=== PATIENT | female | born 1940 | race Caucasian/White ===

== ENCOUNTER 2018-10-04 09:24 | Inpatient (IN) | payer MEDICARE ==
--- NOTE | 2018-10-04 09:44 | ED Physician Chart ---
ED Chief Complaint/HPI - Patient Information Date Seen:: 10/04/18 Time Seen:: 09:30 Chief Complaint:: sob History of Present Illness:: recent discharge from in patient dx pna seen fu 4 days urgent care told to go er sob Allergies:: Allergies Allergy/AdvReac Type Severity Reaction Status Date / Time No Known Allergies Allergy Verified 10/04/18 09:32 Vitals:: Vital Signs - 8 hr 10/04/18 09:33 Temp 98.6 F HR 130 RR 20 BP 169/61 O2 Sat % 86 Historian:: Patient, EMS Review:: Nurse's Note Reviewed ED Review of Systems - Review of Systems Skin: No skin lesions Head: No headache Eyes: No loss of vision ENT: No earache Neck: No neck pain Cardio Vascular: No chest pain Pulmonary: SOB GI: No nausea G/U: No hematuria Marketing Technologist: No vaginal discharge Musculoskeletal: No back pain Endocrine: No polyuria Psychiatric: No homicidal ideation, Auditory hallucination Hematopoietic: No bruising Allergic/Immuno: No urticaria Neurological: No syncope ED Past Medical History - Past Medical History Past Medical History: Asthma/COPD Family History: None Social History: Smoker Surgical History: None Psychiatricy History: None Medication: Reviewed Family Medical History - Family Member Mother History Unknown: Yes ED Physical Exam - Physical Examination General/Constitutional: Awake, Alert Head: Atraumatic Eyes: Lids, conjuctiva normal Skin: Nl inspection ENMT: External ears, nose nl Neck: Nontender, No stridor Other Respiratory comments:: moderate tachypnea coughing adequate movement air Cardio Vascular: RRR, No murmur, gallop, rubs, NL S1 S2 GI: No tenderness/rebounding/guarding : No CVA tenderness Extremities: No tenderness or effusion Neuro/Psych: Alert/oriented Misc: Normal back ED Labs/Radiology/EKG Results - Lab Results Results: 24415 wbc r lobe infiltrate with pleural effusion - Radiology Results Results: pna ED Assessment - Assessment General Assessment: severe r pna ED Septic Shock - . Is Septic Shock (SBP<90, OR Lactate>4 mmol\L) present?: No - <6hrs of presentation: Vital Signs: Vital Signs - 8 hr 10/04/18 09:33 Temp 98.6 F HR 130 RR 20 BP 169/61 O2 Sat % 86 ED Reassessment (Disposition) - Reassessment Reassessment Condition:: Improved - Patient Disposition Discharge/Transfer:: Acute Care w/in this hosp (slight improvement o2 sat) Admitted to:: Telemetry Admitting Medical Physician:: yi jonas admit Condition at Disposition:: Stable (antibiotic given)
[2018-10-04 09:50] LABS: HEMATOCRIT 44.8 % (41.0-60); HEMOGLOBIN 14.9 gm/dL (12-16); MEAN CELL VOLUME 92.7 fl (81-100); MEAN CORPUSCULAR HEMOGLOBIN 30.7 pg (27.0-31.0); MEAN CORPUSCULAR HGB CONC 33.2 pg (28.0-36.0); PLATELET COUNT 330 Th/cmm (150-400); RED BLOOD COUNT 4.84 Mil/cmm (3.80-5.20)
[2018-10-04 09:57] LABS: WHITE BLOOD COUNT 15.3 Th/cmm (4.8-10.8)
[2018-10-04 10:07] LABS: LYMPHOCYTE 6 % (20-50); MONOCYTE 7 % (2-10); NEUTROPHILS 87 % (40-80)
[2018-10-04 10:08] LABS: PLATELET ESTIMATE ADEQUATE (NORMAL)
--- NOTE | 2018-10-04 10:25 | Diagnostic Imaging Report ---
Portable chest x-ray HISTORY: Shortness of breath The heart appears enlarged. Atherosclerotic calcination seen in the aorta. There is evidence of a small to moderate right pleural effusion. Severe infiltrate noted in the right mid and lower lung regions. Questionable infiltrate left lower lobe. IMPRESSION: 1. Severe infiltrate within the right mid and lower lung and possibly the left lower lobe regions. Small to moderate right pleural effusion. Pneumonia cannot be excluded. Clinical correlation is needed.
[2018-10-04 10:46] LABS: ANION GAP 13.3 (7.0-16.0); BUN - UREA NITROGEN 10 mg/dL (7-25); CALCIUM SERUM 9.7 mg/dL (8.6-10.3); CARBON DIOXIDE 27.5 mEq/L (21.0-31.0); CHLORIDE 99 mEq/L (98-107); CREATININE - SERUM 0.7 mg/dL (0.6-1.2); GLUCOSE 139 mg/dL (70-105); POTASSIUM SERUM 3.8 mEq/L (3.5-5.1); SODIUM SERUM 136 mEq/L (136-145)
[2018-10-04] MEDS ORDERED: Vancomycin HCl 1.5 GM in Sodium Chloride 0.9% 500 ML IV ONE (12:00)
[2018-10-04] MEDS: Acetaminophen 500 MG TAB PO PRN ×2 (12:50→22:23)
[2018-10-04] MEDS: Sodium Chloride 0.9% 1,000 ML IV SCH (12:51)
[2018-10-04 14:03] VITALS: BP 123/51
[2018-10-04] MEDS ORDERED: VTE Chemical Prophylaxis Screen/Admission MC PRN (17:00)
[2018-10-04] MEDS: Albuterol Nebulizer 2.5mg/3mL HHN PRN (19:47)
[2018-10-05] MEDS: Sodium Chloride 0.9% 1,000 ML IV SCH (02:13)
[2018-10-05 06:43] LABS: HEMOGLOBIN 12.8 gm/dL (12-16); MEAN CORPUSCULAR HEMOGLOBIN 30.8 pg (27.0-31.0); MEAN CORPUSCULAR HGB CONC 33.5 pg (28.0-36.0); MEAN PLATELET VOLUME 8.1 fl; PLATELET COUNT 280 Th/cmm (150-400); RED BLOOD COUNT 4.16 Mil/cmm (3.80-5.20); RED CELL DISTRIBUTION WIDTH 13.2 % (11.5-20.0)
[2018-10-05 07:04] LABS: ALBUMIN 2.9 gm/dL (3.7-5.3); ALKALINE PHOSPHATASE 48 U/L (34-104); ANION GAP 9.6 (7.0-16.0); BILIRUBIN,TOTAL 0.3 mg/dL (0.3-1.0); BUN - UREA NITROGEN 8 mg/dL (7-25); CALCIUM SERUM 8.7 mg/dL (8.6-10.3); CARBON DIOXIDE 29.4 mEq/L (21.0-31.0); CHLORIDE 103 mEq/L (98-107); CREATININE - SERUM 0.6 mg/dL (0.6-1.2); GLUCOSE 88 mg/dL (70-105); SGOT 11 U/L (13-39); SGPT/ALT 10 U/L (7-52); SODIUM SERUM 138 mEq/L (136-145); TOTAL PROTEIN,SERUM 5.7 gm/dL (6.0-8.3)
[2018-10-05 07:26] LABS: WHITE BLOOD COUNT 7.4 Th/cmm (4.8-10.8)
[2018-10-05 07:36] LABS: BAND NEUTROPHILE 1 % (0-10); BASOPHIL 0 % (0-3); EOSINOPHIL 3 % (0-5); HEMATOCRIT 38.3 % (41.0-60); LYMPHOCYTE 6 % (20-50); MONOCYTE 6 % (2-10); NEUTROPHILS 84 % (40-80)
[2018-10-05] MEDS: Albuterol Nebulizer 2.5mg/3mL HHN PRN (07:46)
[2018-10-05] MEDS: Acetaminophen 500 MG TAB PO PRN (08:41)
[2018-10-05] MEDS: Lactated Ringer 1,000 ML IV SCH (10:09)
[2018-10-05 10:38] LABS: URINE SOURCE CLEAN C
[2018-10-05 10:52] LABS: URINE BILIRUBIN NEGATIVE (NEGATIVE); URINE BLOOD TRACE (NEGATIVE); URINE GLUCOSE (UA) NEGATIVE (NEGATIVE); URINE KETONE TRACE mg/dL (NEGATIVE); URINE LEUKOCYTE ESTERASE NEGATIVE (NEGATIVE); URINE MICROSCOPIC INDICATED? YES; URINE NITRATE NEGATIVE (NEGATIVE); URINE PH 5.5 (4.6 - 8.0); URINE PROTEIN NEGATIVE (NEGATIVE); URINE UROBILINOGEN 0.2 E.U./dL (0.2 - 1.0)
[2018-10-05 11:00] LABS: URINE CLARITY SLIGHTLY HAZY (CLEAR); URINE COLOR YELLOW; URINE RBC 0-2 /hpf (0-5); URINE WBC 0-2 /hpf (0-5)
[2018-10-05 11:01] LABS: URINE BACTERIA NONE SEEN /hpf (NONE SEEN); URINE EPITHELIAL CELLS MANY /lpf (FEW); URINE YEAST FEW /hpf (NONE SEEN)
[2018-10-05 11:11] LABS: pH 7.37 (7.35-7.45)
[2018-10-05 11:12] LABS: ALLEN TEST Yes
[2018-10-05] MEDS: Albuterol/Ipratropium Neb 3 ML AERS HHN SCH ×3 (11:26→18:59)
[2018-10-05] MEDS: Acetylcysteine 10% 10 ML VIAL HHN SCH ×2 (11:26→19:00)
--- NOTE | 2018-10-05 14:08 | History & Physical ---
ADMIT DATE: 10/04/2018 CHIEF COMPLAINT: Shortness of breath. HISTORY OF PRESENT ILLNESS: The patient is a 77-year-old female who was apparently admitted to [facility] on 09/24/2018 and was discharged on 10/02/2018 for similar symptoms, namely shortness of breath, chest congestion and phlegm production. The patient apparently was diagnosed with pneumonia, but by the day that she discharged, she felt somewhat better. Patient was told then that she had COPD and possibly lung cancer, but she refused further work-up while in the hospital. She again started complaining of shortness of breath a few days ago and actually went to an urgent care where she was told to come into the ER. Pertinent findings on admission include white count of 15.3 and a chest x-ray showing severe infiltrate within the right mid and right lower lobe, possibly the left lower lobe regions. Small to moderate right pleural effusions are also noted. The patient also has been noted to have fevers and her O2 sats have also been noted to be on the low side, currently requiring Venturi mask at 50% FiO2 with O2 sats above 95%. On further questioning, she does admit to chronic smoking and has about a [id number] history. She does admit currently to fever, chills and thick phlegm production and yellowish color. PAST MEDICAL HISTORY: COPD, although she says that she has not formally been told that she has it. Previous essential hypertension (not on meds). PAST SURGICAL HISTORY: None reported. FAMILY HISTORY: Noncontributory to this admission. SOCIAL HISTORY: A pack a day for roughly about 40 years. Denies any alcohol. ALLERGIES: NKDA. OUTPATIENT MEDICATIONS: Zithromax 250 every day, Advair 250/50 one puff b.i.d., Proventil HFA 2 puffs q. 4 hours as needed. REVIEW OF SYSTEMS: CONSTITUTIONAL: Fever, chills for the last couple of days. No recent weight loss. CARDIOVASCULAR: No chest pain or palpitations. PULMONARY: Please Refer to the HPI. GASTROINTESTINAL: No bowel habit changes. GENITOURINARY: No bladder habit changes. NEUROLOGIC: No changes in vision, no headaches. PHYSICAL EXAMINATION: VITAL SIGNS: Temperature 98.7, pulse 84-98, respirations 18, BP 129/67, satting 95% on 50% Venturi mask. GENERAL: She is a well-developed, well-nourished female and some respiratory distress, speaking in 2-3 words sentences. She appears to be nontoxic. HEAD AND NECK: Normocephalic, atraumatic. Pupils reactive to light. Extraocular movements are intact. Oropharynx moist and clear. CARDIAC: Regular rate and rhythm without any murmurs. LUNGS: Diminished in both bases. There is mild inspiratory wheezing and some rhonchi noted as well, both lung [place]. ABDOMEN: Soft, supple, nontender, nondistended, normoactive bowel sounds. EXTREMITIES: Lower extremities, there is no pedal edema. LABORATORY DATA: White count 15.3, H and H 15/44 with 87% neutrophils, platelet count 330. Chem-7 was essentially within normal limits with glucose of 139. Lactic acid level 1.65. LFTs were within normal limits. BNP 70. DIAGNOSTICS: Please refer to the HPI. IMPRESSION: 1. Respiratory failure/hypoxia. 2. Sepsis, fever. 3. Bilateral pneumonia, with severe RM/RLL pneumonia. 4. R/O lung cancer given current findings and long standing smoking history. 5. Leukocytosis. 6. Likely chronic obstructive pulmonary disease with exacerbation. 7. Nicotine dependence. PLAN: The patient has been admitted to [facility] for further management and care. The patient has been placed on oxygen, currently Venturi mask at 35% to keep sats above 92%. She also has been started on broad-spectrum antibiotics, IV Solu-Medrol as well as inhaled Solu-Medrol and IV fluids. The patient also will be started on acetylcysteine solution and a Pulmonary consult will be asked for further management and care. I will ask for CT scan of chest, follow CXRs, ABGs, and will wean off oxygen as tolerated. Diagnostic/therapeutic bronchoscopy will likely be highly recommended given her current findings and history. JOB# [id number] CYN
[2018-10-05] MEDS ORDERED: Probiotic Screen MC PRN (14:14)
[2018-10-05] MEDS: Budesonide 0.5 Mg/2 mL Ud HHN SCH (18:59)
[2018-10-06] MEDS: Lactated Ringer 1,000 ML IV SCH (02:11)
[2018-10-06 06:40] LABS: HEMATOCRIT 38.4 % (41.0-60); HEMOGLOBIN 12.6 gm/dL (12-16); LYMPHOCYTE ABSOLUTE 0.3 Th/cmm (1.5-3.0); MEAN CELL VOLUME 92.7 fl (81-100); MEAN CORPUSCULAR HEMOGLOBIN 30.4 pg (27.0-31.0); MEAN CORPUSCULAR HGB CONC 32.8 pg (28.0-36.0); MEAN PLATELET VOLUME 7.8 fl; MONOCYTE ABSOLUTE 0.1 Th/cmm (0.3-1.0); NEUTROPHILE ABSOLUTE 3.9 Th/cmm (1.8-8.0); PLATELET COUNT 297 Th/cmm (150-400); RED BLOOD COUNT 4.14 Mil/cmm (3.80-5.20); RED CELL DISTRIBUTION WIDTH 12.9 % (11.5-20.0); WHITE BLOOD COUNT 4.3 Th/cmm (4.8-10.8)
[2018-10-06 07:09] LABS: ANION GAP 11.8 (7.0-16.0); BUN - UREA NITROGEN 9 mg/dL (7-25); CALCIUM SERUM 9.2 mg/dL (8.6-10.3); CARBON DIOXIDE 29.2 mEq/L (21.0-31.0); CHLORIDE 101 mEq/L (98-107); CREATININE - SERUM 0.6 mg/dL (0.6-1.2); GLUCOSE 137 mg/dL (70-105); MAGNESIUM 2.1 mg/dL (1.9-2.7); SODIUM SERUM 138 mEq/L (136-145)
[2018-10-06] MEDS: Acetylcysteine 10% 10 ML VIAL HHN SCH ×2 (07:10→19:00)
[2018-10-06] MEDS: Albuterol/Ipratropium Neb 3 ML AERS HHN SCH ×4 (07:10→19:00)
[2018-10-06] MEDS: Budesonide 0.5 Mg/2 mL Ud HHN SCH ×2 (07:10→19:31)
[2018-10-06 07:26] LABS: BAND NEUTROPHILE 1 % (0-10); LYMPHOCYTE 5 % (20-50); MONOCYTE 3 % (2-10); NEUTROPHILS 91 % (40-80); PLATELET ESTIMATE ADEQUATE (NORMAL)
[2018-10-06] MEDS: Sodium Chloride 0.9% 1,000 ML IV SCH (14:40)
[2018-10-07 05:12] LABS: BASOPHILE ABSOLUTE 0.1 Th/cumm (0-0.2); HEMATOCRIT 36.4 % (41.0-60); HEMOGLOBIN 11.9 gm/dL (12-16); LYMPHOCYTE ABSOLUTE 0.5 Th/cmm (1.5-3.0); MEAN CELL VOLUME 92.3 fl (81-100); MEAN CORPUSCULAR HEMOGLOBIN 30.2 pg (27.0-31.0); MEAN CORPUSCULAR HGB CONC 32.7 pg (28.0-36.0); MEAN PLATELET VOLUME 7.2 fl; MONOCYTE ABSOLUTE 0.2 Th/cmm (0.3-1.0); PLATELET COUNT 286 Th/cmm (150-400); RED BLOOD COUNT 3.95 Mil/cmm (3.80-5.20); RED CELL DISTRIBUTION WIDTH 12.8 % (11.5-20.0); WHITE BLOOD COUNT 9.8 Th/cmm (4.8-10.8)
[2018-10-07 05:49] LABS: BAND NEUTROPHILE 0 % (0-10); LYMPHOCYTE 10 % (20-50); MONOCYTE 5 % (2-10); NEUTROPHILS 85 % (40-80)
[2018-10-07 06:19] LABS: ANION GAP 9.8 (7.0-16.0); BUN - UREA NITROGEN 13 mg/dL (7-25); CALCIUM SERUM 8.9 mg/dL (8.6-10.3); CHLORIDE 104 mEq/L (98-107); CREATININE - SERUM 0.5 mg/dL (0.6-1.2); GLUCOSE 144 mg/dL (70-105); MAGNESIUM 2.2 mg/dL (1.9-2.7); POTASSIUM SERUM 3.8 mEq/L (3.5-5.1); SODIUM SERUM 140 mEq/L (136-145)
[2018-10-07] MEDS: Albuterol/Ipratropium Neb 3 ML AERS HHN SCH ×4 (07:11→19:18)
[2018-10-07] MEDS: Budesonide 0.5 Mg/2 mL Ud HHN SCH ×2 (07:12→19:19)
[2018-10-07] MEDS: Acetylcysteine 10% 10 ML VIAL HHN SCH ×2 (07:12→19:18)
--- NOTE | 2018-10-07 08:33 | Diagnostic Imaging Report ---
Exam: Portable chest x-ray HISTORY: Pneumonia Prior exam: 10/04/2018 Findings: Portable summation of chest at 0 814 reviewed. The study demonstrates extensive peribronchial infiltrate in the right lung with superimposed effusion unchanged upper approximation. The visualized left lung parenchyma is well aerated. Mediastinal structures midline the the aortic arch calcified, bony thorax intact. IMPRESSION: Essentially unchanged appearance of extensive interstitial infiltrate right lung with superimposed right pleural effusion. Follow-up exam is recommended.
[2018-10-07 09:42] LABS: pH 7.44 (7.35-7.45)
[2018-10-07] MEDS: Sodium Chloride 0.9% 1,000 ML IV SCH (17:44)
[2018-10-08 07:20] LABS: HEMATOCRIT 41.3 % (41.0-60); HEMOGLOBIN 13.6 gm/dL (12-16); MEAN CELL VOLUME 92.1 fl (81-100); MEAN CORPUSCULAR HEMOGLOBIN 30.5 pg (27.0-31.0); MEAN CORPUSCULAR HGB CONC 33.1 pg (28.0-36.0); PLATELET COUNT 289 Th/cmm (150-400); RED BLOOD COUNT 4.48 Mil/cmm (3.80-5.20); RED CELL DISTRIBUTION WIDTH 12.4 % (11.5-20.0)
[2018-10-08] MEDS: Albuterol/Ipratropium Neb 3 ML AERS HHN SCH ×4 (07:23→18:59)
[2018-10-08] MEDS: Acetylcysteine 10% 10 ML VIAL HHN SCH ×2 (07:24→18:59)
[2018-10-08 07:43] LABS: ANION GAP 11.9 (7.0-16.0); BUN - UREA NITROGEN 13 mg/dL (7-25); CARBON DIOXIDE 31.8 mEq/L (21.0-31.0); CHLORIDE 101 mEq/L (98-107); GLUCOSE 128 mg/dL (70-105); POTASSIUM SERUM 3.7 mEq/L (3.5-5.1); SODIUM SERUM 141 mEq/L (136-145)
[2018-10-08 09:01] LABS: BAND NEUTROPHILE 4 % (0-10); BASOPHIL 0 % (0-3); EOSINOPHIL 0 % (0-5); LYMPHOCYTE 7 % (20-50); MONOCYTE 2 % (2-10); NEUTROPHILS 87 % (40-80)
[2018-10-08] MEDS: Sodium Chloride 0.9% 1,000 ML IV SCH (12:10)
[2018-10-08 13:35] LABS: CREATININE - SERUM 0.4 mg/dL (0.6-1.2)
[2018-10-08] MEDS: Budesonide 0.5 Mg/2 mL Ud HHN SCH (14:43)
[2018-10-08] MEDS: Lactobacillus Rhamnosus GG 15 Billion CFU CAP.SPRINK PO SCH (17:17)
[2018-10-09] MEDS: Budesonide 0.5 Mg/2 mL Ud HHN SCH ×2 (08:16→19:02)
[2018-10-09] MEDS: Albuterol/Ipratropium Neb 3 ML AERS HHN SCH ×5 (08:21→23:20)
[2018-10-09] MEDS: Acetylcysteine 10% 10 ML VIAL HHN SCH ×2 (08:21→19:02)
[2018-10-09] MEDS: Lactobacillus Rhamnosus GG 15 Billion CFU CAP.SPRINK PO SCH (09:19)
[2018-10-09] MEDS: Sodium Chloride 0.9% 1,000 ML IV SCH (09:31)
[2018-10-10] MEDS: Budesonide 0.5 Mg/2 mL Ud HHN SCH ×2 (07:05→19:30)
[2018-10-10] MEDS: Albuterol/Ipratropium Neb 3 ML AERS HHN SCH ×4 (07:05→19:30)
[2018-10-10] MEDS: Acetylcysteine 10% 10 ML VIAL HHN SCH ×2 (07:05→19:30)
[2018-10-10] MEDS: Lactobacillus Rhamnosus GG 15 Billion CFU CAP.SPRINK PO SCH (08:35)
[2018-10-10] MEDS: Sodium Chloride 0.9% 1,000 ML IV SCH (08:49)
[2018-10-10 11:18] LABS: % EOSINOPHILS 0.2 % (0.0-5.0); % LYMPHOCYTES 8.7 % (20.0-50.0); % MONOCYTES 1.7 % (2.0-10.0); % NEUTROPHILS 89.4 % (40.0-80.0); HEMATOCRIT 38.6 % (41.0-60); HEMOGLOBIN 12.7 gm/dL (12-16); LYMPHOCYTE ABSOLUTE 0.8 Th/cmm (1.5-3.0); MEAN CELL VOLUME 91.2 fl (81-100); MONOCYTE ABSOLUTE 0.1 Th/cmm (0.3-1.0); NEUTROPHILE ABSOLUTE 7.9 Th/cmm (1.8-8.0); PLATELET COUNT 270 Th/cmm (150-400); RED BLOOD COUNT 4.23 Mil/cmm (3.80-5.20); RED CELL DISTRIBUTION WIDTH 12.5 % (11.5-20.0); WHITE BLOOD COUNT 8.8 Th/cmm (4.8-10.8)
[2018-10-10 11:28] LABS: ANION GAP 10.6 (7.0-16.0); BUN - UREA NITROGEN 12 mg/dL (7-25); CARBON DIOXIDE 32.1 mEq/L (21.0-31.0); CHLORIDE 100 mEq/L (98-107); CREATININE - SERUM 0.4 mg/dL (0.6-1.2); GLUCOSE 139 mg/dL (70-105)
[2018-10-10 11:48] LABS: POTASSIUM SERUM 2.7 mEq/L (3.5-5.1)
[2018-10-10 11:50] LABS: SODIUM SERUM 140 mEq/L (136-145)
[2018-10-10] MEDS ORDERED: Potassium Chloride 20 mEq ER Tab PO ONE (11:54)
[2018-10-10] MEDS: Levofloxacin 500mg/100mL 500 MG/100 ML BAG IV SCH (12:45)
[2018-10-10 13:02] LABS: pH 7.53 (7.35-7.45)
--- NOTE | 2018-10-10 13:31 | Diagnostic Imaging Report ---
CT scan of the chest without intravenous contrast HISTORY: Pneumonia, shortness of breath Total DLP equals 235 CTDI equals 6.5 Axial sections were obtained from a level above the clavicles down to level below the diaphragm. There is extensive infiltrate and consolidation noted throughout the right lower and middle lobes. Air bronchograms noted. Small right pleural effusion also noted. Mild faint infiltrate also noted within the left lung base along with a minimal left pleural effusion and minimal pleural thickening. The overall heart size is normal. No abnormal mediastinal masses. Evaluation of the hilar and vascular structures is limited due to the absence of intravenous contrast. There is suggestion of left hilar enlargement. Underlying pathology including neoplasm cannot be excluded. A scan following administration of intravenous contrast may be helpful. Bronchoscopy may be considered. IMPRESSION: 1. Extensive infiltrate and consolidation within the right lower and middle lobe regions. Small right pleural effusion. Mild infiltrate within the left lower lobe along with a minimal pleural effusion. Findings consistent with pneumonia. Partial obscuration of the right hilar margins with suggestion of enlargement. Underlying pathology including neoplasm cannot be excluded. A scan following administration of intravenous contrast may be helpful. Bronchoscopy may be considered.
[2018-10-10] MEDS: KCL 20mEq/100mL Premix 20 MEQ/100 ML PIGGYBACK IV SCH ×2 (15:06→19:40)
[2018-10-10] MEDS: Acetaminophen 500 MG TAB PO PRN ×2 (16:06→21:10)
[2018-10-11 06:20] LABS: BASOPHILE ABSOLUTE 0.2 Th/cumm (0-0.2); HEMATOCRIT 42.3 % (41.0-60); HEMOGLOBIN 14.2 gm/dL (12-16); LYMPHOCYTE ABSOLUTE 0.6 Th/cmm (1.5-3.0); MEAN CELL VOLUME 91.1 fl (81-100); MEAN CORPUSCULAR HEMOGLOBIN 30.5 pg (27.0-31.0); MEAN CORPUSCULAR HGB CONC 33.5 pg (28.0-36.0); MEAN PLATELET VOLUME 7.7 fl; MONOCYTE ABSOLUTE 0.3 Th/cmm (0.3-1.0); NEUTROPHILE ABSOLUTE 10.1 Th/cmm (1.8-8.0); PLATELET COUNT 281 Th/cmm (150-400); RED BLOOD COUNT 4.64 Mil/cmm (3.80-5.20); RED CELL DISTRIBUTION WIDTH 12.2 % (11.5-20.0); WHITE BLOOD COUNT 11.2 Th/cmm (4.8-10.8)
[2018-10-11 06:45] LABS: ANION GAP 11.8 (7.0-16.0); BUN - UREA NITROGEN 10 mg/dL (7-25); CALCIUM SERUM 9.3 mg/dL (8.6-10.3); CARBON DIOXIDE 33.3 mEq/L (21.0-31.0); CHLORIDE 98 mEq/L (98-107); CREATININE - SERUM 0.5 mg/dL (0.6-1.2); GLUCOSE 115 mg/dL (70-105); MAGNESIUM 2.1 mg/dL (1.9-2.7); POTASSIUM SERUM 3.1 mEq/L (3.5-5.1); SODIUM SERUM 140 mEq/L (136-145)
[2018-10-11] MEDS: Albuterol/Ipratropium Neb 3 ML AERS HHN SCH ×4 (07:33→20:03)
[2018-10-11] MEDS: Acetylcysteine 10% 10 ML VIAL HHN SCH ×2 (07:36→20:03)
[2018-10-11] MEDS: Budesonide 0.5 Mg/2 mL Ud HHN SCH ×2 (07:45→20:03)
[2018-10-11 08:06] LABS: BAND NEUTROPHILE 2 % (0-10); LYMPHOCYTE 13 % (20-50); MONOCYTE 3 % (2-10); NEUTROPHILS 82 % (40-80)
[2018-10-11] MEDS: Lactobacillus Rhamnosus GG 15 Billion CFU CAP.SPRINK PO SCH (08:53)
[2018-10-11] MEDS: Cefepime 1 GM in Sodium Chloride 0.9% 50 ML IV SCH ×2 (13:02→21:05)
[2018-10-11] MEDS: Sodium Chloride 0.9% 1,000 ML IV SCH (13:03)
[2018-10-11] MEDS: Levofloxacin 500mg/100mL 500 MG/100 ML BAG IV SCH (13:38)
[2018-10-12] MEDS: Cefepime 1 GM in Sodium Chloride 0.9% 50 ML IV SCH ×3 (04:48→21:51)
[2018-10-12 06:00] LABS: HEMATOCRIT 42.8 % (41.0-60); MEAN CELL VOLUME 91.3 fl (81-100); MEAN CORPUSCULAR HEMOGLOBIN 29.8 pg (27.0-31.0); MEAN CORPUSCULAR HGB CONC 32.7 pg (28.0-36.0); MEAN PLATELET VOLUME 7.5 fl; PLATELET COUNT 296 Th/cmm (150-400); RED BLOOD COUNT 4.69 Mil/cmm (3.80-5.20); RED CELL DISTRIBUTION WIDTH 12.4 % (11.5-20.0)
[2018-10-12 06:29] LABS: ANION GAP 11.5 (7.0-16.0); BUN - UREA NITROGEN 14 mg/dL (7-25); CALCIUM SERUM 9.2 mg/dL (8.6-10.3); CARBON DIOXIDE 33.7 mEq/L (21.0-31.0); CHLORIDE 98 mEq/L (98-107); CREATININE - SERUM 0.5 mg/dL (0.6-1.2); GLUCOSE 127 mg/dL (70-105); POTASSIUM SERUM 3.2 mEq/L (3.5-5.1); SODIUM SERUM 140 mEq/L (136-145)
[2018-10-12 06:47] LABS: BAND NEUTROPHILE 0 % (0-10); BASOPHIL 0 % (0-3); EOSINOPHIL 0 % (0-5); LYMPHOCYTE 5 % (20-50); MONOCYTE 3 % (2-10); NEUTROPHILS 92 % (40-80)
[2018-10-12] MEDS: Albuterol/Ipratropium Neb 3 ML AERS HHN SCH ×4 (07:16→18:39)
[2018-10-12] MEDS: Budesonide 0.5 Mg/2 mL Ud HHN SCH ×2 (07:16→19:04)
[2018-10-12] MEDS: Acetylcysteine 10% 10 ML VIAL HHN SCH ×2 (07:16→18:39)
[2018-10-12] MEDS: Lactobacillus Rhamnosus GG 15 Billion CFU CAP.SPRINK PO SCH (08:36)
[2018-10-12] MEDS ORDERED: Potassium Chloride 20 mEq ER Tab PO ONE (10:24)
[2018-10-12] MEDS: Levofloxacin 500mg/100mL 500 MG/100 ML BAG IV SCH (13:00)
[2018-10-12] MEDS: Sodium Chloride 0.9% 1,000 ML IV SCH (18:22)
[2018-10-13] MEDS: Cefepime 1 GM in Sodium Chloride 0.9% 50 ML IV SCH ×3 (04:40→21:34)
[2018-10-13 05:34] LABS: MEAN CORPUSCULAR HGB CONC 33.4 pg (28.0-36.0); RED BLOOD COUNT 4.57 Mil/cmm (3.80-5.20); WHITE BLOOD COUNT 12.6 Th/cmm (4.8-10.8)
[2018-10-13 05:41] LABS: HEMATOCRIT 41.6 % (41.0-60); HEMOGLOBIN 13.9 gm/dL (12-16); MEAN CELL VOLUME 91.1 fl (81-100); MEAN CORPUSCULAR HEMOGLOBIN 30.4 pg (27.0-31.0); MEAN PLATELET VOLUME 7.9 fl; PLATELET COUNT 311 Th/cmm (150-400); RED CELL DISTRIBUTION WIDTH 12.6 % (11.5-20.0)
[2018-10-13 06:01] LABS: ANION GAP 12.2 (7.0-16.0); BUN - UREA NITROGEN 12 mg/dL (7-25); CARBON DIOXIDE 30.1 mEq/L (21.0-31.0); CHLORIDE 101 mEq/L (98-107); CREATININE - SERUM 0.5 mg/dL (0.6-1.2); GLUCOSE 118 mg/dL (70-105); MAGNESIUM 2.1 mg/dL (1.9-2.7); POTASSIUM SERUM 3.3 mEq/L (3.5-5.1); SODIUM SERUM 140 mEq/L (136-145)
[2018-10-13 06:31] LABS: NEUTROPHILS 95 % (40-80)
[2018-10-13 06:32] LABS: LYMPHOCYTE 3 % (20-50); MONOCYTE 2 % (2-10); PLATELET ESTIMATE ADEQUATE (NORMAL)
[2018-10-13] MEDS: Albuterol/Ipratropium Neb 3 ML AERS HHN SCH ×4 (07:16→18:51)
[2018-10-13] MEDS: Budesonide 0.5 Mg/2 mL Ud HHN SCH ×2 (07:16→19:17)
[2018-10-13] MEDS: Acetylcysteine 10% 10 ML VIAL HHN SCH ×2 (07:16→18:53)
[2018-10-13] MEDS: Lactobacillus Rhamnosus GG 15 Billion CFU CAP.SPRINK PO SCH (08:42)
[2018-10-13] MEDS: Levofloxacin 500mg/100mL 500 MG/100 ML BAG IV SCH (13:02)
[2018-10-13] MEDS ORDERED: Potassium Chloride 20 mEq ER Tab PO ONE (14:39)
[2018-10-14] MEDS: Cefepime 1 GM in Sodium Chloride 0.9% 50 ML IV SCH ×3 (05:32→20:15)
[2018-10-14 06:05] LABS: HEMATOCRIT 39.1 % (41.0-60); HEMOGLOBIN 13.3 gm/dL (12-16); MEAN CELL VOLUME 91.6 fl (81-100); MEAN CORPUSCULAR HEMOGLOBIN 31.1 pg (27.0-31.0); MEAN CORPUSCULAR HGB CONC 33.9 pg (28.0-36.0); MEAN PLATELET VOLUME 8.4 fl; PLATELET COUNT 292 Th/cmm (150-400); RED BLOOD COUNT 4.27 Mil/cmm (3.80-5.20); RED CELL DISTRIBUTION WIDTH 12.9 % (11.5-20.0); WHITE BLOOD COUNT 11.5 Th/cmm (4.8-10.8)
[2018-10-14 06:15] LABS: ANION GAP 10.2 (7.0-16.0); BUN - UREA NITROGEN 14 mg/dL (7-25); CALCIUM SERUM 8.8 mg/dL (8.6-10.3); CARBON DIOXIDE 30.3 mEq/L (21.0-31.0); CHLORIDE 102 mEq/L (98-107); CREATININE - SERUM 0.5 mg/dL (0.6-1.2); GLUCOSE 126 mg/dL (70-105); POTASSIUM SERUM 3.5 mEq/L (3.5-5.1); SODIUM SERUM 139 mEq/L (136-145)
[2018-10-14] MEDS: Budesonide 0.5 Mg/2 mL Ud HHN SCH ×2 (06:48→19:21)
[2018-10-14] MEDS: Albuterol/Ipratropium Neb 3 ML AERS HHN SCH ×4 (06:49→19:21)
[2018-10-14] MEDS: Acetylcysteine 10% 10 ML VIAL HHN SCH ×2 (06:49→19:23)
[2018-10-14 06:54] LABS: NEUTROPHILS 92 % (40-80)
[2018-10-14 06:55] LABS: BAND NEUTROPHILE 0 % (0-10); LYMPHOCYTE 6 % (20-50); MONOCYTE 2 % (2-10)
--- NOTE | 2018-10-14 08:42 | Diagnostic Imaging Report ---
Portable chest x-ray HISTORY: Pneumonia Compared with prior exam of 10/07/2018, persistent severe infiltrate noted through the right mid and lower lung regions. Persistent infiltrate within the left lower lobe. IMPRESSION: 1. No change in the pulmonary status with bilateral infiltrates (right greater than left).
[2018-10-14] MEDS: Lactobacillus Rhamnosus GG 15 Billion CFU CAP.SPRINK PO SCH (09:15)
[2018-10-14] MEDS: Levofloxacin 500mg/100mL 500 MG/100 ML BAG IV SCH (14:31)
[2018-10-14] MEDS: Sodium Chloride 0.9% 1,000 ML IV SCH (17:42)
[2018-10-15] MEDS: Cefepime 1 GM in Sodium Chloride 0.9% 50 ML IV SCH ×3 (05:07→20:40)
[2018-10-15] MEDS: Albuterol/Ipratropium Neb 3 ML AERS HHN SCH ×4 (06:59→19:11)
[2018-10-15] MEDS: Acetylcysteine 10% 10 ML VIAL HHN SCH ×2 (06:59→19:13)
[2018-10-15] MEDS: Budesonide 0.5 Mg/2 mL Ud HHN SCH ×2 (07:23→19:13)
[2018-10-15] MEDS: Lactobacillus Rhamnosus GG 15 Billion CFU CAP.SPRINK PO SCH (09:25)
[2018-10-15] MEDS: Levofloxacin 500mg/100mL 500 MG/100 ML BAG IV SCH (13:20)
[2018-10-15] MEDS: methylPREDNISolone SS 40 mg Vial IVP SCH (20:41)
[2018-10-16] MEDS: Cefepime 1 GM in Sodium Chloride 0.9% 50 ML IV SCH ×3 (05:28→20:37)
[2018-10-16] MEDS: Albuterol/Ipratropium Neb 3 ML AERS HHN SCH ×4 (06:48→19:18)
[2018-10-16] MEDS: Acetylcysteine 10% 10 ML VIAL HHN SCH ×2 (06:50→19:18)
[2018-10-16 07:00] LABS: % BASOPHILS 0.2 % (0.0-2.0); % EOSINOPHILS 0.5 % (0.0-5.0); % LYMPHOCYTES 9.9 % (20.0-50.0); % MONOCYTES 4.6 % (2.0-10.0); % NEUTROPHILS 84.8 % (40.0-80.0); EOSINOPHILE ABSOLUTE 0.1 Th/cmm (0.1-0.4); HEMATOCRIT 38.7 % (41.0-60); HEMOGLOBIN 12.8 gm/dL (12-16); LYMPHOCYTE ABSOLUTE 1.3 Th/cmm (1.5-3.0); MEAN CORPUSCULAR HEMOGLOBIN 30.5 pg (27.0-31.0); MEAN CORPUSCULAR HGB CONC 33.1 pg (28.0-36.0); MEAN PLATELET VOLUME 8.3 fl; MONOCYTE ABSOLUTE 0.6 Th/cmm (0.3-1.0); NEUTROPHILE ABSOLUTE 11.6 Th/cmm (1.8-8.0); PLATELET COUNT 253 Th/cmm (150-400); RED CELL DISTRIBUTION WIDTH 13.4 % (11.5-20.0); WHITE BLOOD COUNT 13.6 Th/cmm (4.8-10.8)
[2018-10-16] MEDS: Budesonide 0.5 Mg/2 mL Ud HHN SCH ×2 (07:03→19:18)
[2018-10-16] MEDS: methylPREDNISolone SS 40 mg Vial IVP SCH ×2 (09:10→20:37)
[2018-10-16] MEDS: Lactobacillus Rhamnosus GG 15 Billion CFU CAP.SPRINK PO SCH (09:12)
[2018-10-16 12:17] LABS: pH 7.51 (7.35-7.45)
[2018-10-16] MEDS: Levofloxacin 500mg/100mL 500 MG/100 ML BAG IV SCH (15:35)
[2018-10-17] MEDS: Cefepime 1 GM in Sodium Chloride 0.9% 50 ML IV SCH ×3 (04:53→20:17)
[2018-10-17 05:09] LABS: HEMATOCRIT 38.3 % (41.0-60); HEMOGLOBIN 12.8 gm/dL (12-16); MEAN CORPUSCULAR HEMOGLOBIN 30.7 pg (27.0-31.0); MEAN CORPUSCULAR HGB CONC 33.3 pg (28.0-36.0); MEAN PLATELET VOLUME 8.5 fl; PLATELET COUNT 255 Th/cmm (150-400); RED BLOOD COUNT 4.17 Mil/cmm (3.80-5.20); RED CELL DISTRIBUTION WIDTH 13.6 % (11.5-20.0)
[2018-10-17 05:29] LABS: WHITE BLOOD COUNT 16.3 Th/cmm (4.8-10.8)
[2018-10-17 05:54] LABS: BUN - UREA NITROGEN 15 mg/dL (7-25); CALCIUM SERUM 8.9 mg/dL (8.6-10.3); CHLORIDE 101 mEq/L (98-107); CREATININE - SERUM 0.5 mg/dL (0.6-1.2); GLUCOSE 121 mg/dL (70-105); MAGNESIUM 2.3 mg/dL (1.9-2.7); POTASSIUM SERUM 3.8 mEq/L (3.5-5.1); SODIUM SERUM 139 mEq/L (136-145)
[2018-10-17 06:04] LABS: BAND NEUTROPHILE 3 % (0-10); LYMPHOCYTE 6 % (20-50); MONOCYTE 4 % (2-10); NEUTROPHILS 87 % (40-80); PLATELET ESTIMATE ADEQUATE (NORMAL)
[2018-10-17 06:06] LABS: ANION GAP 11.9 (7.0-16.0); CARBON DIOXIDE 29.9 mEq/L (21.0-31.0)
[2018-10-17] MEDS: Acetylcysteine 10% 10 ML VIAL HHN SCH (06:56)
[2018-10-17] MEDS: Albuterol/Ipratropium Neb 3 ML AERS HHN SCH ×4 (06:57→19:58)
[2018-10-17] MEDS: Budesonide 0.5 Mg/2 mL Ud HHN SCH ×2 (07:17→19:58)
[2018-10-17] MEDS: methylPREDNISolone SS 40 mg Vial IVP SCH ×2 (08:20→20:18)
[2018-10-17] MEDS: Lactobacillus Rhamnosus GG 15 Billion CFU CAP.SPRINK PO SCH (08:20)
[2018-10-17] MEDS: Levofloxacin 500mg/100mL 500 MG/100 ML BAG IV SCH (12:22)
--- NOTE | 2018-10-17 21:01 | Discharge Summary ---
DATE OF DISCHARGE: 10/17/2018 ADMITTING DIAGNOSES: 1. Hypoxic respiratory failure. 2. Sepsis, fever. 3. Bilateral pneumonia with severe/extensive right middle and right lower lobe pneumonia. 4. Chronic obstructive pulmonary disease with exacerbation. 5. Leukocytosis. SECONDARY DIAGNOSES: 1. Recent respiratory failure. 2. Recent pneumonia. 3. Nicotine dependence. 4. History of essential hypertension. DISCHARGE DIAGNOSES: 1. Hypoxic respiratory failure secondary to pneumonia and chronic obstructive pulmonary disease exacerbation -- clinically stable. Currently, O2 dependent. 2. Extensive right-sided pneumonia -- clinically improving. Cont with PO antibiotics. 3. Chronic obstructive pulmonary disease with exacerbation -- clinically improving. As above. Prednisone taper was also prescribed. 4. Leukocytosis-resolved initially, then with mild increment likely secondary to steroid usage. There are no signs or symptoms of current infection. 5. Sepsis/fever-resolved/clinically stable. 6. Hypertension -- continue with current mets. CONSULTANTS: Pulmonary consult with Dr. Degroot was asked, but the patient refused/declined consult. MAJOR PROCEDURES: There was a CT of the chest done on 10/10/2018 showing extensive infiltrate and consolidation within the right lower and middle lobe regions. There was a small right pleural effusion. Mild infiltrate within the left lower lobe along with a minimal pleural effusion. Findings consistent with pneumonia. Partial obstruction of the right hilar margins with suggestion of enlargement. Underlying pathology include neoplasm cannot be excluded. BRIEF HOSPITAL COURSE: The patient is a 77-year-old female who was apparently admitted to [facility] on or around 09/24/2018 for respiratory symptoms, namely shortness of breath, chest congestion and phlegm production. Per patient's account, who is a poor historian, she was diagnosed with pneumonia and possibly COPD, although she states that she has never been told that she had COPD. At that time, her physicians also mentioned to her that she needed further workup (bronchoscopy) for therapeutic and diagnostic reasons (to clean secretions and for lung biopsy to rule out lung cancer given the extent of the infiltrate and her long standing history of cigarette smoking) for the possibility of lung, but she refused. She was discharged and soon after started complaining again of worsening shortness of breath, congestion and phlegm production. She presented to a [facility] ER with the above-mentioned complaints, namely worsening shortness of breath, cough and congestion as well as not able to ambulate few steps without getting winded. Pertinent findings on admission include a white count of 15.3, chest x-ray showing a severe right mid and right lobe infiltrate and possibly left lower lobe pneumonia as well. She was placed on oxygen (50% Venturi mask) with saturations of around 95%. This was done given that on room air, her O2 sats were in the mid 80s. She also reported tactile fever and chills (on admission, she was noted to have a temperature of 100.6). The patient was placed on broad-spectrum antibiotics and was pancultured. She also was placed on pulmonary supportive care, IV as well as inhaled steroids. I discussed the case with the patient after the findings became available to me and proposed to her pulmonary consult for further management and care including a possible bronchoscopy given the extensive right-sided infiltrate, but she adamantly refused given that she had a previously bad experience with pulmonary physicians that had seen her at [facility]. I told her that I could consult a different theatre program director, but she was adamant that she did not want pulmonary physician in her case. Nevertheless, the patient remained on antibiotics, pulmonary supportive care with slow improvement of her symptoms. She was also placed on Mucomyst inhalation via HHN nebulizer. Initially she was placed on IV Vancomycin with improvement of her fevers. and eventually, patient was switched to cefepime and Levaquin. Clinically speaking, she improved, requiring less oxygen as the days went by. She was weaned to 4 liters nasal cannula with oxygen saturations around 96-100%. There was an ABG done, initially on 10/05/2018 on 40% Venturi mask showing a pH of 7.37, pCO2 of 50 and a pO2 of 75. A blood gas was done on the showing a pO2 of 41 and this was on 4 liters nasal cannula. Another blood gas was also done yesterday on room air still showing severe hypoxia-- (pO2 of 38 on room air). She was again placed on 4 liters nasal cannula with O2 sats ranging around 96-100%. We also discussed with the patient's daughter and the patient herself the possibility of a long-term acute care, which she adamantly declined and I also brought up the possibility of home health for IV antibiotics given the extensiveness of her pneumonia and her hypoxemia. She initially was reluctant, but then accepted home health for oxygen management, Pulmonary toilet and PT eval. She declined PICC line placement and did not want to recieve further IV antibiotic therapy at home. CONDITION ON DISCHARGE: Stable. DISPOSITION: The patient was discharged home to self-care. She will be followed by home health for oxygen support (via concentrator at 3-4 liters via nasal cannula to keep saturations above 94%), pulmonary toilet and physical therapy. DISCHARGE MEDICATIONS: Levaquin 500 mg p.o. x 14 days, Augmentin XR 875/125 tid x 10 days, prednisone taper, acetylcysteine/Mucomyst in percent 5 mL twice a day via handheld nebulizer, DuoNeb 3 mL q.4 hours while awake and p.r.n., Pulmicort 0.5 via handheld nebulizer twice a day, benazepril 20 mg b.i.d., Tylenol 500 mg q.6 p.r.n. for pain. JOB# [id number] [facility]ITAL[facility]
[2018-10-18] MEDS: Cefepime 1 GM in Sodium Chloride 0.9% 50 ML IV SCH ×2 (04:48→12:22)
[2018-10-18] MEDS: Acetylcysteine 10% 10 ML VIAL HHN SCH (07:42)
[2018-10-18] MEDS: Albuterol/Ipratropium Neb 3 ML AERS HHN SCH ×3 (07:42→15:31)
[2018-10-18] MEDS: Budesonide 0.5 Mg/2 mL Ud HHN SCH (07:43)
[2018-10-18] MEDS: Lactobacillus Rhamnosus GG 15 Billion CFU CAP.SPRINK PO SCH (08:53)
[2018-10-18] MEDS: methylPREDNISolone SS 40 mg Vial IVP SCH (08:53)
== END 2018-10-18 16:20 | disposition home health service (06) | DRG 871 ==
LOC: ER 09:24 → UNDOADMIN 10:50 → TELE 10:50 → MSI 10-13 14:31
PROVIDERS: ADMIT Internal Medicine; ATTEND Internal Medicine
DX: A41.9 Sepsis, unspecified organism (principal); J18.1 Lobar pneumonia, unspecified organism; J96.01 Acute respiratory failure with hypoxia; J44.1 Chronic obstructive pulmonary disease with (acute) exacerbation; J44.0 Chronic obstructive pulmonary disease with (acute) lower respiratory infection; J90 Pleural effusion, not elsewhere classified; F17.210 Nicotine dependence, cigarettes, uncomplicated; T38.0X5A Adverse effect of glucocorticoids and synthetic analogues, initial encounter; Y92.89 Other specified places as the place of occurrence of the external cause
CPT/HCPCS: 36415-UA; 36600-90; 71045-TC; 71046-TC; 71250-TC; 80048-TC; 80053-TC; 80202-TC; 81001-TC; 82803-TC; 83605; 83735-TC; 83880-TC; 85007-TC; 85025-TC; 87070; 93005; 94760; 97530; J0692; J1644; J1956; J2405; J2543; J2920; J2930; J3370; J3480; J7030; J7040; X3904; Z7610